=== PATIENT | female | born 1995 | race Caucasian/White ===

== ENCOUNTER 2019-10-29 10:56 | Emergency (ER) | payer OTHER ==
[~2019-10-29] VITALS: Ht 152.4 cm; Wt 59.1 kg
[2019-10-29 10:58] VITALS: BP 168/84
--- NOTE | 2019-10-29 11:02 | NUR ---
PARENT IS WITH PT.
--- NOTE | 2019-10-29 11:27 | NUR ---
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
[2019-10-29] MEDS ORDERED: ACETAMINOPHEN 500 MG TABLET ONE (11:40)
--- NOTE | 2019-10-29 11:54 | NUR ---
PT MEDICATED PER EMAR. PT TOLERATED WELL.
[2019-10-29] MEDS ORDERED: ACETAMINOPHEN 500 MG TABLET PO ONE (12:00)
--- NOTE | 2019-10-29 12:37 | NUR ---
PT BACK TO ROOM FROM CT AT THIS TIME.
--- NOTE | 2019-10-29 14:03 | NUR ---
PT RESTING IN [facility]. PT'S AOX4. RESPS EVEN AND UNLABORED. AWAITING CT RESULTS AT THIS TIME.
--- NOTE | 2019-10-29 14:38 | NUR ---
Patient given discharge instructions and they have confirmed that they understand the instructions. Patient ambulatory with steady gait.
== END 2019-10-29 14:39 | disposition home or self-care (01) ==
LOC: ED 14:04
DX: S16.1XXA Strain of muscle, fascia and tendon at neck level, initial encounter (principal); R51 Headache; M54.9 Dorsalgia, unspecified; V49.69XA Unspecified car occupant injured in collision with other motor vehicles in traffic accident, initial encounter; Y93.89 Activity, other specified; Y92.488 Other paved roadways as the place of occurrence of the external cause; Y99.8 Other external cause status
CPT/HCPCS: 72125; 99284